=== PATIENT | female | born 1980 | race Caucasian/White ===

== ENCOUNTER 2020-05-22 03:59 | Emergency (ER) | payer BC ==
[2020-05-22] MEDS ORDERED: Acetaminophen/HYDROcodone 325-5 MG Tab PO STA (04:21)
--- NOTE | 2020-05-22 04:29 | EDM.PDOC ---
ED HPI GENERAL MEDICAL PROBLEM - General Chief Complaint: Abdominal Pain Stated Complaint: ABDOMINAL PAIN Time Seen by Provider: 05/22/20 04:05 Source of Information: Reports: Patient History Limitations: Reports: No Limitations - History of Present Illness INITIAL COMMENTS - FREE TEXT/NARRATIVE: Patient presented to the ED because of sudden onset of RUQ pain @ 2130. The pain is sharp and cramping,7/10. there is no N/V/D, fever or chills. She had the same episode 1 month ago which resolved on it's own. 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: Musculoskeletal History: Reports: Fracture Other Musculoskeletal History: hx fx L collar bone Endocrine/Metabolic History: Reports: Obesity/BMI 30+ - Infectious Disease History Infectious Disease History: Reports: Chicken Pox - Past Surgical History Head Surgeries/Procedures: Reports: None HEENT Surgical History: Reports: Oral Surgery Other HEENT Surgeries/Procedures: wisdom teeth 11-12 years ago Female Surgical History: Reports: Section Musculoskeletal Surgical History: Reports: None Social & Family History - Family History Family Medical History: Noncontributory - Tobacco Use Smoking Status *Q: Never Smoker - Caffeine Use Caffeine Use: Reports: Coffee, Soda - Recreational Drug Use Recreational Drug Use: No ED ROS GENERAL - Review of Systems Review Of Systems: See Below Constitutional: Reports: No Symptoms HEENT: Reports: No Symptoms Respiratory: Reports: No Symptoms Cardiovascular: Reports: No Symptoms Endocrine: Reports: No Symptoms GI/Abdominal: Reports: Abdominal Pain : Reports: No Symptoms Musculoskeletal: Reports: No Symptoms Skin: Reports: No Symptoms ED EXAM, GI/ABD - Physical Exam Exam: See Below Exam Limited By: No Limitations General Appearance: Alert, No Apparent Distress Ears: Normal External Exam, Normal Canal Nose: Normal Inspection, Normal Mucosa Throat/Mouth: Normal Inspection, Normal Lips Head: Atraumatic, Normocephalic Neck: Normal Inspection, Supple, Non-Tender Respiratory/Chest: No Respiratory Distress, Lungs Clear Cardiovascular: Normal Peripheral Pulses, Regular Rate, Rhythm, No Edema GI/Abdominal Exam: Normal Bowel Sounds, Soft, Other (RUQ T) Back Exam: Normal Inspection, Full Range of Motion Course - Vital Signs Text/Narrative:: Labs reviewed and discussed with patient and verbalized full understanding [place] 5/325, 2 po x1 GB [id number] result Last Recorded V/S: Last Vital Signs Temp 36.1 C 05/22/20 03:59 Pulse 62 05/22/20 04:54 Resp 18 05/22/20 04:54 BP 135/86 05/22/20 04:54 Pulse Ox 98 05/22/20 04:54 - Orders/Labs/Meds Labs: Laboratory Tests 05/22/20 05/22/20 05/22/20 Range/Units 04:15 04:15 04:15 WBC 8.2 (4.5-12.0) X10-3/uL RBC 4.93 (3.23-5.20) x10(6)uL Hgb 14.2 (11.5-15.5) g/dL Hct 43.9 D (30.0-51.3) % MCV 88.9 (80-96) fL MCH 28.7 (27.7-33.6) pg MCHC 32.3 (32.2-35.4) g/dL RDW 12.9 (11.5-15.5) % Plt Count 300 (125-369) X10(3)uL MPV 8.5 (7.4-10.4) fL Neut % (Auto) 57.1 (46-82) % Lymph % (Auto) 33.2 (13-37) % [place] % (Auto) 6.0 (4-12) % Eos % (Auto) 3 (1.0-5.0) % Baso % (Auto) 1 (0-2) % Neut # (Auto) 4.7 (1.6-8.3) # Lymph # (Auto) 2.7 (0.6-5.0) # [place] # (Auto) 0.5 (0.0-1.3) # Eos # (Auto) 0.2 (0.0-0.8) # Baso # (Auto) 0.1 (0.0-0.2) # Sodium 138 (135-145) mmol/L Potassium 4.4 (3.5-5.3) mmol/L Chloride 103 (100-110) mmol/L Carbon Dioxide 29 (21-32) mmol/L BUN 17 (7-18) mg/dL Creatinine 1.1 H (0.55-1.02) mg/dL Est Cr Clr Drug Dosing 65.55 mL/min Estimated GFR (MDRD) 56 L (>60) BUN/Creatinine Ratio 15.5 (9-20) Glucose 114 (80-116) mg/dL Calcium 8.8 (8.6-10.2) mg/dL Total Bilirubin 0.5 (0.1-1.3) mg/dL AST 13 (5-25) IU/L ALT 19 (12-36) U/L Alkaline Phosphatase 58 (56-112) IU/L Total Protein 7.4 (6.0-8.0) g/dL Albumin 4.0 (3.5-5.2) g/dL Globulin 3.4 g/dL Albumin/Globulin Ratio 1.2 Amylase 31 (25-115) U/L Lipase 97 (73-393) U/L Urine Color (YELLOW) Urine Appearance (CLEAR) Urine pH (5.0-6.5) Ur Specific [place] (1.010-1.025) Urine Protein (NEGATIVE) mg/dL Urine Glucose (UA) (NORMAL) mg/dL Urine Ketones (NEGATIVE) mg/dL Urine Occult Blood (NEGATIVE) Urine Nitrite (NEGATIVE) Urine Bilirubin (NEGATIVE) Urine Urobilinogen (NEGATIVE) mg/dL Ur Leukocyte Esterase (NEGATIVE) 05/22/20 Range/Units 05:00 WBC (4.5-12.0) X10-3/uL RBC (3.23-5.20) x10(6)uL Hgb (11.5-15.5) g/dL Hct (30.0-51.3) % MCV (80-96) fL MCH (27.7-33.6) pg MCHC (32.2-35.4) g/dL RDW (11.5-15.5) % Plt Count (125-369) X10(3)uL MPV (7.4-10.4) fL Neut % (Auto) (46-82) % Lymph % (Auto) (13-37) % [place] % (Auto) (4-12) % Eos % (Auto) (1.0-5.0) % Baso % (Auto) (0-2) % Neut # (Auto) (1.6-8.3) # Lymph # (Auto) (0.6-5.0) # [place] # (Auto) (0.0-1.3) # Eos # (Auto) (0.0-0.8) # Baso # (Auto) (0.0-0.2) # Sodium (135-145) mmol/L Potassium (3.5-5.3) mmol/L Chloride (100-110) mmol/L Carbon Dioxide (21-32) mmol/L BUN (7-18) mg/dL Creatinine (0.55-1.02) mg/dL Est Cr Clr Drug Dosing mL/min Estimated GFR (MDRD) (>60) BUN/Creatinine Ratio (9-20) Glucose (80-116) mg/dL Calcium (8.6-10.2) mg/dL Total Bilirubin (0.1-1.3) mg/dL AST (5-25) IU/L ALT (12-36) U/L Alkaline Phosphatase (56-112) IU/L Total Protein (6.0-8.0) g/dL Albumin (3.5-5.2) g/dL Globulin g/dL Albumin/Globulin Ratio Amylase (25-115) U/L Lipase (73-393) U/L Urine Color Yellow (YELLOW) Urine Appearance Clear (CLEAR) Urine pH 5.0 (5.0-6.5) Ur Specific [place] 1.025 (1.010-1.025) Urine Protein Negative (NEGATIVE) mg/dL Urine Glucose (UA) Normal (NORMAL) mg/dL Urine Ketones 15 H (NEGATIVE) mg/dL Urine Occult Blood Trace (NEGATIVE) Urine Nitrite Negative (NEGATIVE) Urine Bilirubin Negative (NEGATIVE) Urine Urobilinogen Normal (NEGATIVE) mg/dL Ur Leukocyte Esterase Negative (NEGATIVE) Meds: Medications Discontinued Medications Generic Name Dose Route Start Last Admin Trade Name Freq PRN Reason Stop Dose Admin Hydrocodone Bitart/Acetaminophen 2 tab 05/22/20 04:21 05/22/20 04:40 [place] 325-5 Mg PO 05/22/20 04:22 2 tab NOW STA Administration Departure - Departure Time of Disposition: 05:25 Disposition: Home, Self-Care 01 Condition: Good Clinical Impression: Biliary colic - Discharge Information Instructions: Acetaminophen; Hydrocodone tablets or capsules, Biliary Colic, Adult Referrals: PCP,None [Primary Care Provider] - Forms: ED Department Discharge Additional Instructions: Please read discharge instructions on biliary colic Avoid greasy and spicy foods We will call you for your abdominal/gall bladder ultrasound appointment Sepsis Event Note (ED) - Evaluation Sepsis Screening Result: No Definite Risk - Focused Exam Vital Signs: Vital Signs Temp Pulse Resp BP Pulse Ox 05/22/20 04:54 62 18 135/86 98 05/22/20 03:59 36.1 C 67 20 149/92 H 100
[2020-05-22 07:00] VITALS: BP 135/86; PULSE 62
== END 2020-05-22 04:57 | disposition home or self-care (01) ==
LOC: FB.ED 03:59
DX: K80.50 Calculus of bile duct without cholangitis or cholecystitis without obstruction (principal); E66.9 Obesity, unspecified; Z68.33 Body mass index [BMI] 33.0-33.9, adult
CPT/HCPCS: 36415; 80053; 81003; 82150; 83690; 85025; 99284; A9270-GY

== ENCOUNTER 2020-06-21 07:32 | Day surgery (SDC) | payer BC ==
[~2020-06-21 07:32] MED LIST: Lactated Ringers 1,000 ML IV SCH; Sodium Chloride 0.9% 10 ML Syringe FLUSH PRN
[2020-06-21] MEDS ORDERED: Succinylcholine 200 MG/10 ML MDV IV ONE (07:33)
[2020-06-21] MEDS ORDERED: Ketorolac 30 MG/ML SDV IVPUSH ONE (07:33)
[2020-06-21] MEDS ORDERED: Lactated Ringers 1,000 ML IV ONE (07:33)
[2020-06-21] MEDS ORDERED: Dexamethasone 4 MG/ML 5 ML MDV IVPUSH ONE (07:33)
[2020-06-21] MEDS ORDERED: fentaNYL 100 MCG/2 ML SDV IV ONE (07:33)
[2020-06-21] MEDS ORDERED: Rocuronium 50 MG/5 ML Vial IV ONE (07:33)
[2020-06-21] MEDS ORDERED: Sugammadex Sodium 200 MG/2 ML VIAL IV ONE (07:33)
[2020-06-21] MEDS ORDERED: Propofol 200 MG/20 ML SDV IV ONE (07:33)
[2020-06-21] MEDS ORDERED: Midazolam 1 MG/ML 2 ML SDV IV ONE (07:33)
[2020-06-21] MEDS ORDERED: Ondansetron 4 MG/2 ML SDV IVPUSH ONE (07:33)
[2020-06-21] MEDS ORDERED: diphenhydrAMINE 50 MG/ML SDV IVPUSH ONE (07:33)
[2020-06-21] MEDS ORDERED: cefOXitin 2 GM Vial IVPUSH ONE (09:00)
[2020-06-21] MEDS ORDERED: cefOXitin 2 GM in Sodium Chloride 0.9% 100 ML IV ONE (09:00)
[2020-06-21] MEDS ORDERED: Bupivacaine 0.5% 30 ML SDV INJECT ONE (09:47)
[2020-06-21] MEDS ORDERED: Lidocaine 1% with EPINEPHrine 1:100,000 20 ML MDV INJECT ONE (09:47)
--- NOTE | 2020-06-21 10:18 | PCM.OPNOTE ---
- General Post-Op/Procedure Note Date of Surgery/Procedure: 06/21/20 Operative Procedure(s): lap cholecystectomy Findings: gallbladder with stone critical view obtained Pre Op Diagnosis: gallstone without obstruction Post-Op Diagnosis: Same Anesthesia Technique: General ET Tube, Local (9 ml 1 % lido with epi/0.5% buvipicaine) Primary Surgeon: Chauncey Fam Anesthesia Provider: Matilde Shine Pathology: gallbladder and contents Complications: None Condition: Good Free Text/Narrative:: see dictation
[2020-06-21] MEDS ORDERED: Acetaminophen/HYDROcodone 325-5 MG Tab PO PRN (10:22)
[2020-06-21 11:24] VITALS: BP 124/74; PULSE 58
--- NOTE | 2020-06-21 14:36 | OR ---
DATE OF OPERATION: 06/21/2020 SURGEON: Chauncey Fam MD PROCEDURE PERFORMED: Laparoscopic cholecystectomy. PREOPERATIVE DIAGNOSIS: Symptomatic cholelithiasis without obstruction or gangrene. POSTOPERATIVE DIAGNOSIS: Symptomatic cholelithiasis without obstruction or gangrene. INDICATIONS FOR PROCEDURE: This is a 39-year-old white female, who has a history of symptomatic gallstone. She was offered and accepted cholecystectomy. FINDINGS: Intraoperative findings are as follows: 1. Critical view was obtained. 2. Single stone was noted to be in the infundibulum and a total of 9 mL of a 1:1 mixture of 1% lidocaine with epinephrine and 0.5% bupivacaine was used for our local. DESCRIPTION OF OPERATION: After an excellent general endotracheal anesthetic was administered, the patient was prepped and draped in usual sterile manner. Due to the patient's body habitus, we planned our periumbilical incision above the umbilicus. This was done by infiltrating above the belly button and making a vertical midline incision. Blunt dissection was carried out, exposing the midline fascia. Two stay sutures of 0 Vicryl were placed on either side of the fascia, which was then elevated. The midline fascia was incised, and the abdominal cavity was entered. After digital palpation to ensure no adhesions, a 10.5 mm balloon Lenore trocar was inserted. The patient's abdomen was then insufflated to 15 mmHg using carbon dioxide. Under direct visualization, three 5 mm ports were placed, 1 in the midline epigastrium and 2 below the right costal margin at the approximate level of the midclavicular and anterior axillary line, using the following technique: Full-thickness infiltration of local, followed by a small stab incision, followed by insertion of the trocar. The patient was then placed in reverse Trendelenburg with an airplane to the left. The infundibulum of the gallbladder was grabbed and retracted in a cephalad fashion. Some superficial thin adhesions were taken down, and careful blunt dissection was carried out, exposing the cystic duct and the cystic artery. After obtaining the critical view, 1 clip was placed distally and 2 proximally on the cystic duct. In a likewise fashion, 2 clips were placed proximally on the cystic artery and 1 distally on the cystic artery, and both structures were then transected. L-hook cautery dissection was used to dissect the gallbladder free from the gallbladder fossa. The specimen was then passed into a specimen bag and delivered out through the periumbilical port. After evaluating the fossa for any evidence of hemorrhage, the area was irrigated. No bleeding was noted, and after aspirating our irrigant, the 5 mm ports were removed under direct visualization and the pneumoperitoneum was released. The periumbilical fascia was closed with a [id number] 0 Vicryl and the 2 Vicryl stay sutures were then tied to each other. The skin was closed with viktor. Needle, sponge, and instrument counts were reported as correct. The patient was taken to Recovery in good condition. /[id number] /[id number]
== END 2020-06-21 11:48 | disposition home or self-care (01) ==
LOC: FB.SDS 07:32
PROVIDERS: ATTEND Surgery
DX: K80.10 Calculus of gallbladder with chronic cholecystitis without obstruction (principal); E66.9 Obesity, unspecified; Z68.33 Body mass index [BMI] 33.0-33.9, adult
CPT/HCPCS: 47562; 81025; 94150; J0330; J0694; J1100; J1200; J1885; J2250; J2405; J2704; J3010; J3490; J7120